=== PATIENT | female | born 1965 | race African-American/Black ===

== ENCOUNTER 2017-08-08 11:26 | Observation (INO) | payer SELFPAY ==
[~2017-08-08] VITALS: Ht 170.2 cm; Wt 118.2 kg
[~2017-08-08 11:26] MED LIST: ANORO ELLIPTA1 EACH IH; ASPIR-LOW81 MG PO; Advair HFA 115/21 IH; Aspirin E.C. PO; BYSTOLIC10 MG PO; BYSTOLIC5 MG PO; CIPRO500 MG PO; CLONIDINE HCL0.1 MG PO; CYCLOBENZAPRINE10 MG PO; CYMBALTA30 MG PO; DIOVAN HCT 31 TABLE1 PO; HYDROCHLOROTHIA25 MG PO; HYDROCODON-ACE1 EAC7 PO; Levaquin PO; NORVASC10 MG PO; Norvasc PO; PHENERGAN-CODE120 ML PO; PREDNISONE20 MG PO; PROVENTIL,2.5 MG/0.5 IH; PROVENTIL,2.5 MG/3 M IH; Proventil,Ventolin H IH; SINGULAIR10 MG PO; SPIRIVA1 INHALATI IH; Singulair PO; TYLENOL REGULA325 MG PO; TYLENOL WITH C1 EACH PO; Vicodin,Norco 5/325 PO; XANAX0.5 MG PO; XANAX1 MG PO; Xanax PO; [UNRECOGNIZED DRUG - OTHER] PO; predniSONE PO
[2017-08-08] MEDS ORDERED: HYZAAR 50-121 TABLET PO (14:17)
[2017-08-08] MEDS ORDERED: XANAX1 MG PO (14:19)
[2017-08-08] MEDS ORDERED: FLEXERIL10 MG PO (14:19)
[2017-08-08] MEDS ORDERED: PROBIOTIC1 EAC1 PO (14:20)
[2017-08-08 14:39] LABS: EOSINOPHIL (%) 0.2 % (0-5); HEMATOCRIT 50.4 % (36.0-46.0); IMMATURE GRANULOCYTE (%) 0.4 % (0.0-0.7); IMMATURE GRANULOCYTE COUNT 0.1 K/uL; LYMPHOCYTE COUNT 1.2 K/uL (1.0-2.8); MCH 29.1 PG (29.0-34.0); MCHC 31.9 G/DL (30.0-36.0); MEAN PLAT.VOLUME 11.6 uM^3 (9.5-12.4); MONOCYTE (%) 0.7 % (3-12); MONOCYTE COUNT 0.1 K/uL (0-0.8); NEUTROPHIL (%) 89.9 % (45-76); PLATELET COUNT 242 K/uL (156-360); RBC DIS.WIDTH-CV 14.6 % (11.8-14.6); RBC DIS.WIDTH-SD 49.1 % (39-53); RED BLOOD COUNT 5.54 M/uL (3.80-5.20); WHITE BLOOD COUNT 13.4 K/uL (4.1-10.2)
[2017-08-08 14:57] LABS: CHLORIDE 103 mEq/L (99-109); POTASSIUM 4.3 mEq/L (3.7-5.4); SODIUM 141 mEq/L (136-147)
[2017-08-08 14:58] LABS: GLUCOSE 139 mg/dL (70-99)
[2017-08-08 15:00] LABS: ANION GAP 11 MEQ/L (2-14)
[2017-08-08 15:02] LABS: GFR ESTIMATE (CALCULATED) > 59 mL/min/
[2017-08-08 15:03] LABS: UREA NITROGEN (BUN) 15 mg/dL (9-23)
[2017-08-08 17:10] VITALS: BP 199/136
== END 2017-08-08 17:00 | disposition left against medical advice (07) ==
LOC: EME 11:26 → ENRESERV 14:28 → CANRESERV 14:28 → EDOF 14:33
PROVIDERS: Emergency Medicine
DX: J44.1 Chronic obstructive pulmonary disease with (acute) exacerbation (principal); R09.02 Hypoxemia; F17.210 Nicotine dependence, cigarettes, uncomplicated; I10 Essential (primary) hypertension; K21.9 Gastro-esophageal reflux disease without esophagitis; F41.9 Anxiety disorder, unspecified; M54.9 Dorsalgia, unspecified; Z79.82 Long term (current) use of aspirin; M19.90 Unspecified osteoarthritis, unspecified site; Z83.3 Family history of diabetes mellitus; E66.01 Morbid (severe) obesity due to excess calories
CPT/HCPCS: 71010; 80048; 85025; 94640; 94640 76; 94799; 99202; 99281; 99284; G0378; J2930

== ENCOUNTER 2017-08-20 07:07 | Observation (INO) | payer SELFPAY ==
[~2017-08-20] VITALS: Ht 170.2 cm; Wt 118.5 kg
[~2017-08-20 07:07] MED LIST changes: +FLEXERIL10 MG PO; +HYZAAR 100-21 TABLET PO; +PROBIOTIC1 EAC1 PO
[2017-08-20 07:44] LABS: CARBON DIOXIDE (BICARBONATE) 38.8 MEQ/L (20-31); EOSINOPHIL (%) 6.6 % (0-5); EOSINOPHIL COUNT 0.7 K/uL (0-0.3); HEMATOCRIT 47.8 % (36.0-46.0); IMMATURE GRANULOCYTE (%) 0.4 % (0.0-0.7); INSTRUMENT ABS NEUTROPHIL CT 7.2 K/uL; LYMPHOCYTE COUNT 2.1 K/uL (1.0-2.8); MCH 28.7 PG (29.0-34.0); MCHC 31.4 G/DL (30.0-36.0); MCV 91.4 FL (83-99); MEAN PLAT.VOLUME 11.5 uM^3 (9.5-12.4); MONOCYTE (%) 4.4 % (3-12); MONOCYTE COUNT 0.5 K/uL (0-0.8); NEUTROPHIL (%) 68.2 % (45-76); NEUTROPHIL COUNT 7.2 K/uL (1.8-6.4); PLATELET COUNT 205 K/uL (156-360); RBC DIS.WIDTH-CV 14.2 % (11.8-14.6); RBC DIS.WIDTH-SD 47.8 % (39-53); RED BLOOD COUNT 5.23 M/uL (3.80-5.20); WHITE BLOOD COUNT 10.5 K/uL (4.1-10.2)
[2017-08-20 07:59] LABS: CHLORIDE 107 mEq/L (99-109); POTASSIUM 3.5 mEq/L (3.7-5.4); SODIUM 144 mEq/L (136-147)
[2017-08-20 08:01] LABS: GLUCOSE 117 mg/dL (70-99)
[2017-08-20 08:03] LABS: ANION GAP 8 MEQ/L (2-14); TOTAL BILIRUBIN 0.3 mg/dL (0.0-1.0)
[2017-08-20 08:05] LABS: ALKALINE PHOSPHATASE 111 IU/L (3-129); GFR ESTIMATE (CALCULATED) > 59 mL/min/
[2017-08-20 08:06] LABS: UREA NITROGEN (BUN) 9 mg/dL (9-23)
[2017-08-20 08:29] LABS: BASE EXCESS 6.2 mEq/L (-3 to +3); BICARBONATE 35.9 mEq/L (22-26); CARBOXY HGB 3.2 % (0-5); COMMENTS - BLOOD GASES C+; DEVICE NC; METHEMOGLOBIN 1.2 % (0-1.5); O2 FLOW 2 L/MIN; PCO2 73 mm Hg (35-45); PO2 63 mm Hg (80-100); SITE LR; TOTAL RESP RATE 22 resp/min
[2017-08-20] MEDS ORDERED: ANORO ELLIPTA1 EACH IH (10:08)
[2017-08-20 13:25] VITALS: BP 173/79
[2017-08-20 13:33] VITALS: BP 173/79
[2017-08-20 16:21] VITALS: BP 152/77
[2017-08-20 18:18] LABS: BASE EXCESS 4.2 mEq/L (-3 to +3); BICARBONATE 32.2 mEq/L (22-26); CARBOXY HGB 2.4 % (0-5); METHEMOGLOBIN 1.6 % (0-1.5); pH 7.33 (7.35-7.45)
[2017-08-20 18:19] LABS: PCO2 61 mm Hg (35-45); PO2 45 mm Hg (80-100); SITE RR
[2017-08-20 18:20] LABS: COMMENTS - BLOOD GASES A+C+; DEVICE ROOM AIR; TOTAL RESP RATE 18 resp/min
[2017-08-21] VITALS: BP 154/72
[2017-08-21 07:40] VITALS: BP 178/102
[2017-08-21 10:30] VITALS: BP 158/90
[2017-08-21 15:45] VITALS: BP 182/91
[2017-08-21 23:17] VITALS: BP 168/91
[2017-08-22 00:51] VITALS: BP 168/91
[2017-08-22 06:42] LABS: EOSINOPHIL (%) 0 % (0-5); HEMATOCRIT 46.7 % (36.0-46.0); IMMATURE GRANULOCYTE (%) 0.9 % (0.0-0.7); IMMATURE GRANULOCYTE COUNT 0.2 K/uL; INSTRUMENT ABS NEUTROPHIL CT 20.2 K/uL; LYMPHOCYTE COUNT 1.5 K/uL (1.0-2.8); MCH 28.9 PG (29.0-34.0); MCHC 31.5 G/DL (30.0-36.0); MCV 91.9 FL (83-99); MEAN PLAT.VOLUME 11.7 uM^3 (9.5-12.4); MONOCYTE (%) 2.3 % (3-12); MONOCYTE COUNT 0.5 K/uL (0-0.8); NEUTROPHIL (%) 90.1 % (45-76); NEUTROPHIL COUNT 20.2 K/uL (1.8-6.4); PLATELET COUNT 224 K/uL (156-360); RBC DIS.WIDTH-CV 14.3 % (11.8-14.6); RBC DIS.WIDTH-SD 48.4 % (39-53); RED BLOOD COUNT 5.08 M/uL (3.80-5.20); WHITE BLOOD COUNT 22.4 K/uL (4.1-10.2)
[2017-08-22 07:08] LABS: ANION GAP 6 MEQ/L (2-14); CHLORIDE 103 MEQ/L (99-109); GFR ESTIMATE (CALCULATED) > 59 mL/min/; GLUCOSE 225 mg/dL (70-99); POTASSIUM 4.3 MEQ/L (3.7-5.4); SAMPLE HEMOLYSIS CHECK 0; SAMPLE ICTERIC CHECK 0; SAMPLE LIPEMIA CHECK 0; SODIUM 141 MEQ/L (136-147); UREA NITROGEN (BUN) 20 mg/dL (9-23)
[2017-08-22 08:34] VITALS: BP 170/118
[2017-08-22 11:30] VITALS: BP 170/100
[2017-08-22] MEDS ORDERED: DUONEB 2.5-0.5 M3 ML AEROSOL (13:35)
[2017-08-22] MEDS ORDERED: BREO ELLIPTA 21 EACH IH (13:38)
[2017-08-22] MEDS ORDERED: ROBITUSSIN AC,T10 ML PO (13:38)
[2017-08-22] MEDS ORDERED: PREDNISONE10 MG PO (13:38)
[2017-08-22] MEDS ORDERED: NICOTINE PATCH1 EAC2 TD (13:38)
[2017-08-22] MEDS ORDERED: AUGMENTIN875 MG PO (13:38)
== END 2017-08-22 14:53 | disposition home or self-care (01) ==
LOC: EME → EDBD 07:07 → EME 07:07 → EDOF 10:18 → 5EAST 10:18 → ENRESERV 10:24 → EDOF 10:28 → ENRESERV 10:28 → ENRESERVTM 12:46 → 5EAST 13:05 → ENPENDDIS 08-22 → 5EAST 08-22 14:53
PROVIDERS: Family Medicine; Internal Medicine Pulmonary Disease; Physician Assistant
DX: J44.1 Chronic obstructive pulmonary disease with (acute) exacerbation (principal); J96.22 Acute and chronic respiratory failure with hypercapnia; F17.210 Nicotine dependence, cigarettes, uncomplicated; I10 Essential (primary) hypertension; F41.9 Anxiety disorder, unspecified; E66.01 Morbid (severe) obesity due to excess calories; K21.9 Gastro-esophageal reflux disease without esophagitis; M19.90 Unspecified osteoarthritis, unspecified site; Z79.82 Long term (current) use of aspirin; Z82.49 Family history of ischemic heart disease and other diseases of the circulatory system; Z83.3 Family history of diabetes mellitus; Z68.41 Body mass index [BMI] 40.0-44.9, adult
CPT/HCPCS: 36600; 71020; 80048; 80053; 82803; 85025; 94640; 94640 76; 94644; 94645; 94799; 99202; 99281; 99285; G0378; J0696; J1644; J2930; J7050; J7644

== ENCOUNTER 2018-01-23 05:56 | Inpatient (IN) | payer SELFPAY ==
[~2018-01-23] VITALS: Ht 170.2 cm; Wt 127.9 kg
[2018-01-23] VITALS (12 sets, daily range): BP systolic 132–151; BP diastolic 93–100
[~2018-01-23 05:56] MED LIST changes: +AUGMENTIN875 MG PO; +BREO ELLIPTA 21 EACH IH; +DUONEB 2.5-0.5 M3 ML AEROSOL; +NICOTINE PATCH1 EAC2 TD; +PREDNISONE10 MG PO; +ROBITUSSIN AC,T10 ML PO
[2018-01-23 07:32] LABS: HEMATOCRIT 49.3 % (36.0-46.0); HEMOGLOBIN 15.1 G/DL (11.9-15.5); MCH 28.7 PG (29.0-34.0); MCHC 30.6 G/DL (30.0-36.0); MCV 93.7 FL (83-99); NRBC (%) 0.4 /100 WBC (0-0); PLATELET COUNT 359 K/uL (156-360); RBC DIS.WIDTH-CV 15.1 % (11.8-14.6); RBC DIS.WIDTH-SD 52.2 % (39-53); RED BLOOD COUNT 5.26 M/uL (3.80-5.20)
[2018-01-23 07:57] LABS: TROP-I INTERPRETATION NEGATIVE; TROPONIN-I 0.11 ng/mL (0.0-0.30)
[2018-01-23 08:03] LABS: CHLORIDE 98 MEQ/L (99-109); CREATININE 1.2 MG/DL (0.6-1.3); GFR ESTIMATE (CALCULATED) > 59 mL/min/; GLUCOSE 149 mg/dL (70-99); POTASSIUM 3.7 MEQ/L (3.7-5.4); SODIUM 143 MEQ/L (136-147); UREA NITROGEN (BUN) 26 mg/dL (9-23)
[2018-01-23 09:10] LABS: COMMENTS - BLOOD GASES A+C+; DEVICE NC; METHEMOGLOBIN 0.9 % (0-1.5); O2 FLOW 6 L/MIN; PCO2 > 126 mm Hg (35-45); PO2 78 mm Hg (80-100); SITE RR; pH 7.03 (7.35-7.45)
[2018-01-23 10:21] LABS: BASE EXCESS 8.2 mEq/L (-3 to +3); BICARBONATE 36.4 mEq/L (22-26); CARBOXY HGB 3.1 % (0-5); COMMENTS - BLOOD GASES A+C+; DEVICE VENT; FI02 100 %; MECHANICAL RATE 24 resp/min; METHEMOGLOBIN 1.5 % (0-1.5); PCO2 66 mm Hg (35-45); PEEP 5 CM/H20; PO2 162 mm Hg (80-100); SITE RR; TOTAL RESP RATE 24 resp/min; pH 7.35 (7.35-7.45)
[2018-01-23 10:22] LABS: MODE AC
[2018-01-23 14:26] LABS: BASE EXCESS 9.8 mEq/L (-3 to +3); CARBOXY HGB 2.6 % (0-5); METHEMOGLOBIN 1.5 % (0-1.5); pH 7.44 (7.35-7.45)
[2018-01-23 14:28] LABS: COMMENTS - BLOOD GASES A+C+; DEVICE VENT; FI02 70 %; MECHANICAL RATE 15 resp/min; MODE ACVC; PCO2 53 mm Hg (35-45); PEEP 5 CM/H20; PO2 69 mm Hg (80-100); SITE RR; TIDAL VOLUME 500 ML; TOTAL RESP RATE 15 resp/min
[2018-01-23 15:32] LABS: APPEARANCE CLEAR ((CLEAR)); BILIRUBIN NEGATIVE; BLOOD NEGATIVE; COLOR YELLOW ((YELLOW)); GLUCOSE (STRIP) NEGATIVE; KETONES NEGATIVE; LEUKOCYTES NEGATIVE; NITRITE NEGATIVE; PROTEIN (STRIP) 100
[2018-01-23 15:42] LABS: SPECIFIC GRAVITY 1.082 (1.000-1.030)
[2018-01-23 15:53] LABS: BACTERIA RARE /HPF; EPITHELIAL CELLS RARE /HPF; MUCUS TRACE /LPF; UCUL ADDED? NO; WHITE BLOOD CELLS 0-5 /HPF (0-5)
[2018-01-24] VITALS (25 sets, daily range): BP systolic 105–154; BP diastolic 74–102
[2018-01-24 06:02] LABS: BASOPHIL (%) 0.1 % (0-1); EOSINOPHIL (%) 0 % (0-5); HEMATOCRIT 47.6 % (36.0-46.0); HEMOGLOBIN 14.4 G/DL (11.9-15.5); IMMATURE GRANULOCYTE (%) 0.4 % (0.0-0.7); LYMPHOCYTE (%) 4.4 % (15-42); LYMPHOCYTE COUNT 0.7 K/uL (1.0-2.8); MCH 27.6 PG (29.0-34.0); MCHC 30.3 G/DL (30.0-36.0); MCV 91.4 FL (83-99); MONOCYTE COUNT 0.5 K/uL (0-0.8); NEUTROPHIL (%) 92.1 % (45-76); NRBC (%) 0.3 /100 WBC (0-0); PLATELET COUNT 327 K/uL (156-360); RBC DIS.WIDTH-CV 15.5 % (11.8-14.6); RBC DIS.WIDTH-SD 50.8 % (39-53); RED BLOOD COUNT 5.21 M/uL (3.80-5.20); WHITE BLOOD COUNT 16.3 K/uL (4.1-10.2)
[2018-01-24 06:29] LABS: CHLORIDE 98 MEQ/L (99-109); CREATININE 1.6 MG/DL (0.6-1.3); GFR ESTIMATE (CALCULATED) 43 mL/min/; GLUCOSE 178 mg/dL (70-99); POTASSIUM 4.3 MEQ/L (3.7-5.4); SODIUM 142 MEQ/L (136-147); UREA NITROGEN (BUN) 35 mg/dL (9-23)
[2018-01-24 17:12] LABS: BASE EXCESS 11.2 mEq/L (-3 to +3); BICARBONATE 38.3 mEq/L (22-26); CARBOXY HGB 2.2 % (0-5); COMMENTS - BLOOD GASES C+; DEVICE VENT; METHEMOGLOBIN 1.4 % (0-1.5); PCO2 59 mm Hg (35-45); PO2 60 mm Hg (80-100); SITE RR; pH 7.42 (7.35-7.45)
[2018-01-24 17:13] LABS: FI02 50 %; MODE TC; PEEP 5 CM/H20; TOTAL RESP RATE 28 resp/min
[2018-01-25] VITALS (14 sets, daily range): BP systolic 121–169; BP diastolic 76–111
[2018-01-25 11:12] LABS: BASOPHIL (%) 0.1 % (0-1); EOSINOPHIL (%) 0 % (0-5); HEMATOCRIT 50.1 % (36.0-46.0); HEMOGLOBIN 15.3 G/DL (11.9-15.5); IMMATURE GRANULOCYTE (%) 0.4 % (0.0-0.7); LYMPHOCYTE (%) 4.2 % (15-42); LYMPHOCYTE COUNT 0.7 K/uL (1.0-2.8); MCH 28.1 PG (29.0-34.0); MCHC 30.5 G/DL (30.0-36.0); MCV 92.1 FL (83-99); MONOCYTE (%) 3.7 % (3-12); MONOCYTE COUNT 0.6 K/uL (0-0.8); NEUTROPHIL (%) 91.6 % (45-76); NEUTROPHIL COUNT 15.3 K/uL (1.8-6.4); NRBC (%) 0.2 /100 WBC (0-0); PLATELET COUNT 385 K/uL (156-360); RBC DIS.WIDTH-CV 15.7 % (11.8-14.6); RED BLOOD COUNT 5.44 M/uL (3.80-5.20); WHITE BLOOD COUNT 16.6 K/uL (4.1-10.2)
[2018-01-25 11:37] LABS: CHLORIDE 95 MEQ/L (99-109); CREATININE 1.6 MG/DL (0.6-1.3); GFR ESTIMATE (CALCULATED) 43 mL/min/; GLUCOSE 178 mg/dL (70-99); MAGNESIUM 2.5 mg/dl (1.3-2.7); PHOSPHORUS 4.7 mg/dL (2.5-4.9); POTASSIUM 4.2 MEQ/L (3.7-5.4); SODIUM 140 MEQ/L (136-147)
[2018-01-25 11:41] LABS: UREA NITROGEN (BUN) 54 mg/dL (9-23)
[2018-01-26 03:24] VITALS: BP 133/79
[2018-01-26 06:28] LABS: BASOPHIL (%) 0.1 % (0-1); EOSINOPHIL (%) 0 % (0-5); HEMATOCRIT 49.6 % (36.0-46.0); HEMOGLOBIN 14.7 G/DL (11.9-15.5); IMMATURE GRANULOCYTE (%) 0.6 % (0.0-0.7); LYMPHOCYTE (%) 3.8 % (15-42); LYMPHOCYTE COUNT 0.6 K/uL (1.0-2.8); MCH 27.1 PG (29.0-34.0); MCHC 29.6 G/DL (30.0-36.0); MCV 91.5 FL (83-99); MONOCYTE (%) 3.7 % (3-12); MONOCYTE COUNT 0.6 K/uL (0-0.8); NEUTROPHIL (%) 91.8 % (45-76); NEUTROPHIL COUNT 14.1 K/uL (1.8-6.4); NRBC (%) 0.1 /100 WBC (0-0); PLATELET COUNT 335 K/uL (156-360); RBC DIS.WIDTH-CV 15.3 % (11.8-14.6); RBC DIS.WIDTH-SD 51.9 % (39-53); RED BLOOD COUNT 5.42 M/uL (3.80-5.20); WHITE BLOOD COUNT 15.4 K/uL (4.1-10.2)
[2018-01-26 06:54] LABS: CHLORIDE 96 MEQ/L (99-109); CREATININE 1.6 MG/DL (0.6-1.3); GFR ESTIMATE (CALCULATED) 43 mL/min/; GLUCOSE 222 mg/dL (70-99); SODIUM 141 MEQ/L (136-147); UREA NITROGEN (BUN) 56 mg/dL (9-23)
[2018-01-26 08:00] VITALS: BP 135/53
[2018-01-26 12:00] VITALS: BP 134/90
[2018-01-26 19:30] VITALS: BP 148/74
[2018-01-26 23:26] VITALS: BP 144/70
[2018-01-27 00:10] VITALS: BP 151/66
[2018-01-27 08:16] LABS: CHLORIDE 99 MEQ/L (99-109); CREATININE 1.3 MG/DL (0.6-1.3); GFR ESTIMATE (CALCULATED) 55 mL/min/; GLUCOSE 155 mg/dL (70-99); SODIUM 139 MEQ/L (136-147); UREA NITROGEN (BUN) 48 mg/dL (9-23)
[2018-01-27 08:20] VITALS: BP 170/82
[2018-01-27 08:34] LABS: BASE EXCESS 10.7 mEq/L (-3 to +3); BICARBONATE 38.4 mEq/L (22-26); CARBOXY HGB 2.1 % (0-5); COMMENTS - BLOOD GASES A+C+; DEVICE NC; O2 FLOW 4 L/MIN; PCO2 62 mm Hg (35-45); PO2 87 mm Hg (80-100); SITE RR
[2018-01-27 08:35] LABS: TOTAL RESP RATE 16 resp/min
[2018-01-27 12:10] VITALS: BP 165/100
[2018-01-27 16:16] VITALS: BP 170/90
[2018-01-27 19:29] VITALS: BP 164/98
[2018-01-28 00:41] VITALS: BP 155/82
[2018-01-28 04:30] VITALS: BP 158/84
[2018-01-28 07:02] LABS: CHLORIDE 99 MEQ/L (99-109); CREATININE 1.1 MG/DL (0.6-1.3); GFR ESTIMATE (CALCULATED) > 59 mL/min/; GLUCOSE 141 mg/dL (70-99); POTASSIUM 4.3 MEQ/L (3.7-5.4); SODIUM 143 MEQ/L (136-147); UREA NITROGEN (BUN) 34 mg/dL (9-23)
[2018-01-28 07:55] VITALS: BP 169/99
[2018-01-28] MEDS ORDERED: STIOLTO RESPIMAT4 GM IH (13:40)
[2018-01-28] MEDS ORDERED: AMOX TR-K CLV1 EAC4 PO (13:40)
[2018-01-28] MEDS ORDERED: DUONEB 2.5-0.5 M3 ML AEROSOL (13:40)
[2018-01-28] MEDS ORDERED: PREDNISONE10 MG PO (13:40)
[2018-01-28] MEDS ORDERED: ADVAIR 250/501 DISK IH (13:40)
[2018-01-28] MEDS ORDERED: XANAX1 MG PO (13:40)
[2018-01-28] MEDS ORDERED: HYDROCHLOROTH12.5 M3 PO (13:40)
[2018-01-28] MEDS ORDERED: LOSARTAN POTAS100 MG PO (13:40)
== END 2018-01-28 15:10 | disposition home or self-care (01) | DRG 208 ==
LOC: EME → EDBD 05:56 → EDOF 10:15 → 2EAST 10:15 → 4WEST 10:15 → ENRESERV 10:16 → 4WEST 11:53 → ENRESERV 01-25 10:53 → 2EAST 01-25 14:09
PROVIDERS: Internal Medicine; Internal Medicine Cardiovascular Disease; Internal Medicine Critical Care Medicine; Internal Medicine Pulmonary Disease; Nurse Practitioner Family; Specialist
DX: J96.02 Acute respiratory failure with hypercapnia (principal); J98.11 Atelectasis; I50.9 Heart failure, unspecified; J96.01 Acute respiratory failure with hypoxia; I11.0 Hypertensive heart disease with heart failure; J20.9 Acute bronchitis, unspecified; J43.9 Emphysema, unspecified; R06.82 Tachypnea, not elsewhere classified; J44.0 Chronic obstructive pulmonary disease with (acute) lower respiratory infection; N28.9 Disorder of kidney and ureter, unspecified; E87.2 Acidosis; F41.9 Anxiety disorder, unspecified; E66.01 Morbid (severe) obesity due to excess calories; F17.210 Nicotine dependence, cigarettes, uncomplicated; I42.0 Dilated cardiomyopathy; I27.20 Pulmonary hypertension, unspecified; M19.90 Unspecified osteoarthritis, unspecified site; Z87.891 Personal history of nicotine dependence; Z87.01 Personal history of pneumonia (recurrent); I25.2 Old myocardial infarction
CPT/HCPCS: 36600; 70450; 71045; 71275; 80048; 81003; 82803; 82948; 83605; 83735; 83880; 84100; 84484; 85025; 85027; 87040; 87070; 87077; 87185; 87205; 87449; 87502; 87641; 93005; 93306; 94002; 94003; 94640; 94640 76; 94644; 94660; 94799; 99202; J0330; J0456; J0696; J1650; J1940; J2060; J2405; J2704; J2920; J2930; J3475; J7512

== ENCOUNTER 2018-02-25 14:31 | Emergency (ER) | payer SELFPAY ==
[~2018-02-25] VITALS: Ht 170.2 cm; Wt 95.4 kg
[~2018-02-25 14:31] MED LIST changes: +ADVAIR 250/501 DISK IH; +AMOX TR-K CLV1 EAC4 PO; +HYDROCHLOROTH12.5 M3 PO; +LOSARTAN POTAS100 MG PO; +STIOLTO RESPIMAT4 GM IH
[2018-02-25 15:31] LABS: HEMATOCRIT 47.1 % (36.0-46.0); HEMOGLOBIN 14.6 G/DL (11.9-15.5); MCH 27.8 PG (29.0-34.0); MCV 89.7 FL (83-99); PLATELET COUNT 207 K/uL (156-360); RBC DIS.WIDTH-CV 16.5 % (11.8-14.6); RBC DIS.WIDTH-SD 52.9 % (39-53); RED BLOOD COUNT 5.25 M/uL (3.80-5.20); WHITE BLOOD COUNT 11.3 K/uL (4.1-10.2)
[2018-02-25 15:40] LABS: CHLORIDE 101 mEq/L (99-109); POTASSIUM 3.2 mEq/L (3.7-5.4); SODIUM 143 mEq/L (136-147)
[2018-02-25 15:42] LABS: GLUCOSE 115 mg/dL (70-99)
[2018-02-25 15:45] LABS: CREATININE 1.3 mg/dL (0.6-1.3); GFR ESTIMATE (CALCULATED) 55 mL/min/
[2018-02-25 15:46] LABS: UREA NITROGEN (BUN) 22 mg/dL (9-23)
[2018-02-25 17:24] VITALS: BP 134/101
== END 2018-02-25 17:24 | disposition home or self-care (01) ==
LOC: EME 14:31
PROVIDERS: Emergency Medicine
DX: T24.201A Burn of second degree of unspecified site of right lower limb, except ankle and foot, initial encounter (principal); L03.115 Cellulitis of right lower limb; X11.8XXA Contact with other hot tap-water, initial encounter; K21.9 Gastro-esophageal reflux disease without esophagitis; Z87.891 Personal history of nicotine dependence
CPT/HCPCS: 80048; 83605; 85027; 99281; 99284